=== PATIENT | male | born 1940 | race Hispanic/Latino ===

== ENCOUNTER 2016-09-13 09:54 | Day surgery (SDC) | payer MEDICARE ==
[2016-09-11 13:09] VITALS: BMI 21.9
[2016-09-13 10:53] LABS: BASO # 0.1 K/uL (0.0-0.2); BASO % 0.9 % (0.0-2.0); EOS # 0.3 K/uL (0.0-0.7); EOS % 3.2 % (0.0-4.0); LYMPH # 1.8 K/uL (1.0-4.3); LYMPH % 21.8 % (20.0-40.0); MEAN CELL VOLUME 92.9 fL (80.0-94.0); MEAN CORPUSCULAR HEMOGLOBIN 30.6 pg (27.0-31.0); MEAN CORPUSCULAR HGB CONC 32.9 g/dL (33.0-37.0); MEAN PLATELET VOLUME 9.6 fL (7.2-11.7); MONO # 0.6 K/uL (0.0-0.8); MONO % 7.7 % (0.0-10.0); RED CELL DISTRIBUTION WIDTH 14.2 % (11.5-14.5); WHITE BLOOD COUNT 8.2 K/uL (4.8-10.8)
[2016-09-13 10:58] LABS: INR 1.1
[2016-09-13 11:02] LABS: POTASSIUM 5.3 mmol/L (3.6-5.2)
[2016-09-13 11:05] LABS: CALCIUM 8.2 mg/dl (8.6-10.4)
[2016-09-13] MEDS ORDERED: Iodixanol 320 MG/ML 200 ML BOTTLE IV ONE (11:18)
[2016-09-13] MEDS ORDERED: Iodixanol 320 MG/ML 100 ML BOTTLE IV ONE (11:18)
[2016-09-13] MEDS ORDERED: Midazolam 2 MG/2 ML VIAL ONE (11:41)
--- NOTE | 2016-09-13 15:30 | OP ---
PROCEDURE DATE: 09/13/2016 PREOPERATIVE DIAGNOSES: Peripheral vascular disease with ulceration of the left lower extremity. 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 PROCEDURE PERFORMED: Retrograde access right common femoral artery, selective catheter placement infrarenal abdominal aorta, abdominal aortography, bilateral iliofemoral runoff, bilateral extremity angiography SURGEON: Twan Wolf MD COMPLICATIONS: None. HISTORY OF PRESENT ILLNESS: The patient is a 76-year-old male with a past medical history of ischemic cardiomyopathy, coronary artery disease, peripheral vascular disease, who has undergone previous endovascular intervention. The patient is an extensive smoker. He has developed erythema and ulceration on the tibial portion of the left lower extremity. Ankle brachial index revealed markedly diminished PVR waveforms in the left lower extremity. The patient is referred for angiography. DESCRIPTION OF PROCEDURE: After obtaining informed consent, the patient was prepped and draped in the usual sterile fashion. The right groin was anesthetized with 2% lidocaine solution. A 5-Kyr[place] sheath was inserted into the right common femoral artery via modified Seldinger technique. An Omniflush catheter was advanced to the infrarenal abdominal aorta. Abdominal aortography was performed. The catheter was then positioned at the iliac bifurcation. Bilateral iliofemoral runoff was performed. Digital subtraction was used with full imaging to the feet bilaterally. All catheters were removed and an Angio- Seal device deployed successfully to achieve hemostasis. FINDINGS: The infrarenal abdominal aorta reveals a small saccular aneurysm. There is no evidence of dissection. There is mild disease in bilateral common and external iliac arteries. The common femoral arteries are free of disease bilaterally. The right superficial femoral artery has been stented through a large part of its course. The stent exhibits mild in-stent restenosis. The popliteal artery has got mild atherosclerosis. There is 2-vessel runoff to the right foot. In the left leg, the left superficial femoral artery is occluded 100% proximally. There is a stent which has been placed in the proximal third of the left superficial femoral artery. There is extensive collateral formation from the left profunda femoralis which then reconstitutes at the left peroneal artery. The occlusion extends throughout the superficial femoral artery and left popliteal artery. Geniculate collaterals also form, give rise to a posterior tibial artery and there is predominantly single vessel runoff to the left foot via the peroneal artery, although reconstitution at the ankle of the popliteal artery is seen. All catheters were removed and an Angio-Seal device deployed successfully to achieve hemostasis without complication. 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 PLAN: The patient will continue with aggressive medical therapy and localized wound care to the ulceration in the tibial region. There is no endovascular option possible as there is no runoff from the popliteal artery. I recommend restarting Coumadin therapy. Smoking cessation has been discussed extensively with the patient. Twan Wolf MD cc: [id number] TT: 09/13/2016 15:29:30 en MTDD
[2016-09-13 16:11] VITALS: RESP 18; TEMP 98; O2SAT 98
[2016-09-13 16:15] VITALS: BP 125/76; PULSE 73
== END 2016-09-13 15:10 | disposition home or self-care (01) ==
LOC: C.CATHLAB 09:54
PROVIDERS: ATTEND Internal Medicine Cardiovascular Disease
DX: I77.89 Other specified disorders of arteries and arterioles (principal); I77.1 Stricture of artery; F17.200 Nicotine dependence, unspecified, uncomplicated
CPT/HCPCS: 36415; 75716; 80048; 85025; 85610; 85730; J1644; J2250; J3010; Q9966; Q9967